=== PATIENT | male | born 1985 | race Caucasian/White ===

== ENCOUNTER 2024-09-26 12:46 | Day surgery (SDC) | payer OTHER ==
[~2024-09-26] VITALS: Ht 182.9 cm; Wt 88.5 kg
[~2024-09-26 12:46] MED LIST: NS 250 ML IV ONE
[2024-09-26] MEDS ORDERED: propofoL 200 MG/20 ML VIAL As Ordered ONE (14:56)
[2024-09-26] MEDS ORDERED: LIDOCAINE 2% 100MG/5ML SDV (FOR ANES.) As Ordered ONE (15:03)
[2024-09-26 15:20] VITALS: TEMP 97.2
[2024-09-26 16:00] VITALS: BP 133/75; O2SAT 99
[2024-09-26 16:31] LABS: CLOSTRIDIUM DIFFICILE PCR NEGATIVE (NEGATIVE)
== END 2024-09-26 16:52 | disposition home or self-care (01) ==
LOC: M OPP 12:46
PROVIDERS: ATTEND Internal Medicine Gastroenterology
DX: K52.9 Noninfective gastroenteritis and colitis, unspecified (principal); K21.00 Gastro-esophageal reflux disease with esophagitis, without bleeding; K29.50 Unspecified chronic gastritis without bleeding; K22.10 Ulcer of esophagus without bleeding; K22.70 Barrett's esophagus without dysplasia; K64.8 Other hemorrhoids; Z72.0 Tobacco use

== ENCOUNTER → 2025-06-26 | Outpatient (CLI) | payer OTHER | LOC: M PLAIMG 10:11 | PROVIDERS: ATTEND Physician Assistant | DX: J32.8 Other chronic sinusitis (principal); J34.2 Deviated nasal septum ==